=== PATIENT | female | born 1990 | race Caucasian/White ===

== ENCOUNTER 2018-03-13 14:10 | Emergency (ER) | payer BC ==
[~2018-03-13] VITALS: Ht 162.6 cm; Wt 46.3 kg
[2018-03-13 14:36] VITALS: Ht 162.6 cm; Wt 46.3 kg
[2018-03-13 17:44] LABS: CARBON DIOXIDE 26.2 mmol/L (21-32); CHLORIDE SERUM 107 mmol/L (98-107); CREATININE SERUM 0.6 mg/dL (0.6-1.0); GFR1 > 60 mL/min; GLUCOSE SERUM 91 mg/dL (74-106); SODIUM SERUM 143 mmol/L (136-145)
[2018-03-13 17:52] LABS: ALBUMIN 3.7 g/dL (3.4-5.0); ALKALINE PHOSPHATASE 71 U/L (46-116); ALT/SGPT 170 U/L (14-59); AST/SGOT 62 U/L (15-37); BILIRUBIN TOTAL 1.12 mg/dL (0.20-1.00); T4(THYROXINE) 16.7 ug/dL (4.7-13.3); TOTAL PROTEIN, SERUM 6.9 g/dL (6.4-8.2)
[2018-03-13 18:23] LABS: AMPHETAMINE QUAL UR NONE DETECTED (See below)
[2018-03-13 19:04] LABS: BASOPHIL % 0.5 % (0-2); PLATELET COUNT 219 x10^3mcL (130-400); RED CELL DISTRIBUTION WIDTH 11.9 % (11.5-14.5)
[2018-03-13 19:43] VITALS: BP 105/69
== END 2018-03-13 19:43 | disposition home or self-care (01) ==
LOC: ED 14:10
PROVIDERS: Emergency Medicine
DX: E05.90 Thyrotoxicosis, unspecified without thyrotoxic crisis or storm (principal); R00.0 Tachycardia, unspecified
CPT/HCPCS: 36415; 85378; J7030